=== PATIENT | female | born 1985 | race Caucasian/White ===

== ENCOUNTER 2024-02-12 14:48 | Inpatient (IN) | payer OTHER, SELFPAY ==
[2024-02-12 14:53] VITALS: BP 138/84; PULSE 63; O2SAT 99
--- NOTE | 2024-02-12 15:01 | MHC.CARE ---
Pt seen by N crisis in the community. N reported Pt presented internally preoccupied, thought blocking, and not speaking. Reportedly off medications. N to send assessment.
[2024-02-12 15:13] VITALS: BP 121/76; PULSE 60; RESP 12; TEMP 36.7; O2SAT 98; BMI 39.1
[2024-02-12 15:34] LABS: MANUAL DIFF FLAG NO
[2024-02-12 15:37] LABS: Appearance Urine Clear; Color Urine Yellow; Glucose Urine UA Negative (Negative); Leukocyte Esterase Urine Small (1+) (Negative); Nitrite Urine Negative (Negative); PH 5.5 (5.0-9.0); UMIC TRIGGER UA YES; Urine Blood Negative (Negative); Urine Ketones Trace mg/dL (Negative); Urine Protein Negative (Neg-Trace)
[2024-02-12 15:38] LABS: Basophils Percent Auto 0.1 % (0-2); Eosinophils Absolute Auto 0.4 X10*3/uL (0.0-0.4); Hematocrit 41.7 % (37.0-47.0); Imm Gran Abs Auto 0.03 X10*3/uL (0.00-0.03); Imm Gran Pct Auto 0.3 % (0.0-0.4); Lymphocytes Percent Auto 22.1 % (20-40); Mean Corpuscular HGB Conc 33.6 g/dl (31.0-35.0); Mean Corpuscular Hemoglobin 28.7 pg (27.0-33.0); Mean Corpuscular Volume 85.6 fL (80.0-98.0); Mean Platelet Volume 8.9 fL (9.4-12.3); Monocytes Absolute Auto 0.8 X10*3/uL (0.1-1.2); Monocytes Percent Auto 8.1 % (2-11); Neutrophils Percent Auto 65.4 % (45-73); Platelet Count 409 X10*3/uL (160-400); Red Blood Count 4.87 X10*6/uL (4.20-5.50); Red Cell Distribution Width 13.5 % (11.0-16.0); White Blood Count 9.2 X10*3/uL (4.8-10.8)
--- NOTE | 2024-02-12 15:38 | PC.NURSE ---
Pt admitted to pod. pt changed over for safety, belongings secured. urine and blood tests sent. pt is very flat, very slow to answer questions.
[2024-02-12 15:39] LABS: UPreg QC Valid YES; Urine Pregnancy NEGATIVE (NEGATIVE)
[2024-02-12 15:51] LABS: Alanine Aminotransferase 30 U/L (0-31); Albumin Level 4.2 g/dL (3.5-5.0); Alkaline Phosphatase 95 U/L (39-117); Anion Gap 12 (12-20); Aspartate Amino Transferase 29 U/L (5-31); Bilirubin Total 0.5 mg/dL (0.0-1.0); Blood Urea Nitrogen 10 mg/dL (9-16); Calcium 9.5 mg/dL (8.4-10.2); Carbon Dioxide 24 mmol/L (22-29); Chloride 110 mmol/L (96-108); Creatinine Clr Calc Pharmacy 107.7; Estimated Glomerular Filt Rate > 60; Ethanol < 10 mg/dL; Glucose Random 84 mg/dL (60-115); Potassium 4.2 mmol/L (3.3-5.1); Sodium 142 mmol/L (135-145); Total Protein 7.9 g/dL (6.5-8.0)
[2024-02-12 15:52] LABS: Bacteria Urine Trace (None Seen); Hyaline Casts Urine 0-2 /LPF (0-2); RBC Urine 0-2 /HPF (0-2); WBC Urine 0-5 /HPF (0-5)
[2024-02-12 16:02] LABS: Amphetamine Screen Urine Not Detected (Not Detect); Barbiturates, Urine Not Detected (Not Detect); Benzodiazepines Screen Urine Not Detected (Not Detect); Buprenorphine Scr Not Detected (Not Detect); Cannabinoid Screen Urine Not Detected (Not Detect); Cocaine Screen Urine Not Detected (Not Detect); Fentanyl, urine Not Detected (Not Detect); Methadone Screen, Urine Not Detected (Not Detect); Opiate Screen Urine Not Detected (Not Detect); Oxycodone Screen Urine Not Detected (Not Detect); Phencyclidine Screen Urine Not Detected (Not Detect)
--- NOTE | 2024-02-12 16:55 | ED.GENADULT ---
HPI - General Adult General Chief complaint: Psychiatric Symptoms Stated complaint: SEC 12,SI,AUDITORY HALLUCINATIONS PER EMS Time Seen by Provider: 02/12/24 14:53 Source: patient, RN notes reviewed and old records reviewed Mode of arrival: EMS Limitations: no limitations History of Present Illness ED Provider: Edwin HPI narrative: 38-year-old female with past medical history significant for schizophrenia, major depressive disorder presents for evaluation on a section 12. Patient received in the community for vague suicidal thoughts as well as auditory hallucinations. Patient reports that she has been depressed for most of her life. She reports that she does not want to live anymore but does not have any specific plan She reports that she consider stabbing herself but ?I do not want to traumatize my roommates. ? She also reports hearing voices that she was sick of hearing Denies any somatic complaints Related Data Allergies Allergy/AdvReac Type Severity Reaction Status Date / Time No Known Allergies Allergy Unverified 02/12/24 15:14 [No Known Allergies*] Review of Systems Constitutional: Constitutional: Denies body ache(s), Denies chills and Denies fever(s) Eyes: Eyes: Denies blurry vision ENT: Denies vertigo and Denies dizziness Cardiovascular: Cardiovascular: Denies chest pain and Denies dyspnea Respiratory: Respiratory: Denies cough and Denies dyspnea Gastrointestinal: Gastrointestinal: Denies abdominal pain, Denies nausea and Denies vomiting Musculoskeletal: Musculoskeletal: Denies back pain Integumentary/Breasts: Skin/Breast: Denies rash Neurologic: Denies vertigo and Denies dizziness Psychiatric: Psychiatric: Reports anxiety, Reports depression, Reports auditory hallucinations, Reports visual hallucinations, Denies homicidal ideation and Reports suicidal ideation [facility] Social History Social History (System 12/19/22 @ 15:07 by Viniat Hayes) Unable to assess alcohol history related to: Unknown Smoked in Last 30 Days: No Use of substances other than those prescribed or required for medical reasons: Unknown Advance Directives: No Advance Directives Information Provided: Yes Physical Exam ED Vital Signs: Vital Signs - 24 hr 02/12/24 15:13 Temperature 98.0 F Pulse Rate 60 Respiratory Rate 12 Blood Pressure 121/76 Pulse Oximetry 98 Oxygen Delivery Method Room Air BMI result Body Mass Index 39.1 Const General: healthy appearing, comfortable, no acute distress, alert and awake Nutritional Appearance: well nourished Orientation/consciousness: patient oriented x3 HENMT Head: Yes normocephalic and Yes atraumatic Eyes Eyelids: Yes eyelids normal Conjunctivae: conjunctivae normal Sclerae: sclerae normal Corneas: corneas normal Pupils: Equal, round and reactive pupils present EOM: EOMs intact bilaterally Neck Neck: Yes full ROM Resp Effort & Inspection: normal respiratory effort, able to speak in complete sentences and not labored GI Inspection: No distended Palpation (GI): Soft to palpation, not firm, nontender, no guarding and not rigid Skin General skin exam: elasticity normal Neuro General: patient oriented x3 Cranial nerves: Yes Equal, round and reactive pupils present and Yes Bilaterally intact EOM present Cognition (Neuro): normal cognition Extrem Other: Moving all extremities well without any obvious deformities Psych Other: The patient is quite withdrawn and initially refusing to answer questions, just starting blankly. She would eventually open up and started answering questions at length Appearance: grossly normal Speech and movement: Normal speech and movement present Affect: Sad affect present Attitude: Guarded attititude/behavior present Thought content: Suicidality present Course Reevaluation(s) Reevaluation #1: Patient is medically cleared for psychiatric admission Time: 19:07 Medical Decision Making Medical Decision Making MDM Narrative: 38-year-old female presents for evaluation of auditory hallucinations and depression with suicidal ideation. Plan for medical clearance. She was already a section 12 for inpatient psychiatric care. Differential Diagnosis Differential Diagnoses: The differential diagnosis associated with the presentation includes Schizophrenia Psychosis Depression Suicidal ideation Auditory hallucinations Lab Data [facility] Lab Attestation statement: I reviewed the patient's lab results. No leukocytosis or anemia. Platelet count just above normal. Electrolytes without concerning abnormalities warranting intervention 02/12/24 15:30 02/12/24 15:30 Labs: Lab Results 02/12/24 02/12/24 Range/Units 15:18 15:30 WBC 9.2 (4.8-10.8) X10*3/uL RBC 4.87 (4.20-5.50) X10*6/uL Hgb 14.0 (12.0-16.0) g/dl Hct 41.7 (37.0-47.0) % MCV 85.6 (80.0-98.0) fL MCH 28.7 (27.0-33.0) pg MCHC 33.6 (31.0-35.0) g/dl RDW 13.5 (11.0-16.0) % Plt Count 409 H (160-400) X10*3/uL MPV 8.9 L (9.4-12.3) fL Immature Gran % (Auto) 0.3 (0.0-0.4) % Neut % (Auto) 65.4 (45-73) % Lymph % (Auto) 22.1 (20-40) % [place] % (Auto) 8.1 (2-11) % Eos % (Auto) 4.0 (0-4) % Baso % (Auto) 0.1 (0-2) % Lymph # (Auto) 2.0 (1.2-4.9) X10*3/uL [place] # (Auto) 0.8 (0.1-1.2) X10*3/uL Eos # (Auto) 0.4 (0.0-0.4) X10*3/uL Baso # (Auto) 0.0 (0.0-0.2) X10*3/uL Abs Immat Gran (auto) 0.03 (0.00-0.03) X10*3/uL Absolute Neuts (auto) 6.0 (2.0-8.3) x10*3/uL Absolute Nucleated RBC 0.000 (0.0-0.012) X10*3/uL Nucleated RBC % (auto) 0.0 (0.0-0.2) /100WBC Sodium 142 (135-145) mmol/L Potassium 4.2 (3.3-5.1) mmol/L Chloride 110 H (96-108) mmol/L Carbon Dioxide 24 (22-29) mmol/L Anion Gap 12 (12-20) BUN 10 (9-16) mg/dL Creatinine 0.77 (0.5-1.4) mg/dL Estim Creat Clear Calc 107.7 Estimated GFR > 60 Random Glucose 84 (60-115) mg/dL Calcium 9.5 (8.4-10.2) mg/dL Total Bilirubin 0.5 (0.0-1.0) mg/dL AST 29 (5-31) U/L ALT 30 (0-31) U/L Alkaline Phosphatase 95 (39-117) U/L Total Protein 7.9 (6.5-8.0) g/dL Albumin 4.2 (3.5-5.0) g/dL Urine Color Yellow Urine Appearance Clear Urine pH 5.5 (5.0-9.0) Ur Specific [place] 1.020 (1.005-1.025) Urine Protein Negative (Neg-Trace) mg/dL Urine Glucose (UA) Negative (Negative) mg/dL Urine Ketones Trace (Negative) mg/dL Urine Blood Negative (Negative) Urine Nitrite Negative (Negative) Ur Leukocyte Esterase Small (1+) H (Negative) Urine RBC 0-2 (0-2) /HPF Urine WBC 0-5 (0-5) /HPF Ur Squamous Epith Cells 6-10 (0-2) /HPF Urine Bacteria Trace (None Seen) Hyaline Casts 0-2 (0-2) /LPF Urine Test NEGATIVE (NEGATIVE) Urine Opiates Screen Not Detected (Not Detect) Ur Buprenorphine Scrn Not Detected (Not Detect) ng/mL Ur Oxycodone Screen Not Detected (Not Detect) ng/mL Urine Methadone Screen Not Detected (Not Detect) ng/mL Urine Fentanyl Screen Not Detected (Not Detect) Ur Barbiturates Screen Not Detected (Not Detect) Ur Phencyclidine Scrn Not Detected (Not Detect) Ur Amphetamines Screen Not Detected (Not Detect) U Benzodiazepines Scrn Not Detected (Not Detect) Urine Cocaine Screen Not Detected (Not Detect) U Marijuana (THC) Screen Not Detected (Not Detect) Ethyl Alcohol < 10 mg/dL Discharge Plan Discharge Clinical Impression: Suicidal ideation, Auditory hallucinations Patient Disposition: Still a Patient Interventions: [place]-Suicide Risk Severity Scale Last Done: 02/12/24 15:21 Print Language: Ivorian
--- NOTE | 2024-02-13 | ECG_ITS ---
Test Reason : baseline qt Blood Pressure : / mmHG Vent. Rate : 072 BPM Atrial Rate : 072 BPM P-R Int : 118 ms QRS Dur : 080 ms QT Int : 396 ms P-R-T Axes : -05 131 143 degrees QTc Int : 433 ms Normal sinus rhythm Left posterior fascicular block Inferior infarct , age undetermined Abnormal ECG When compared with ECG of 25-FEB-2017 10:56, Left posterior fascicular block is now Present Nonspecific T wave abnormality now evident in Inferior leads Nonspecific T wave abnormality now evident in Lateral leads Referred By: Anni Ye Electronically Signed By:KAYLA DELGADO MD
[2024-02-13 03:17] VITALS: BP 113/62; PULSE 65; RESP 18; TEMP 36.9; O2SAT 98
[2024-02-13] MEDS: LORazepam 1 MG TABLET 2 MG PO (03:20)
--- NOTE | 2024-02-13 06:27 | PC.NURSE ---
Patient slept intermittently, no distress observed/reported except reported chest pain after waking up from sleep, Ativan 2 mg PO administered with + effect, VSS, disposition per care team is section-12 inpatient bed search, med rec reviewed off her medication for months, will continue to monitor
[2024-02-13 12:46] VITALS: BP 117/71; PULSE 84; RESP 16; TEMP 36.7; O2SAT 98
[2024-02-13 13:35] VITALS: BP 138/84; PULSE 74; RESP 16; TEMP 36.8; O2SAT 99
[2024-02-13] MEDS: Acetaminophen 325 MG TABLET 650 MG PO (14:16)
[2024-02-13 16:29] VITALS: BMI 39.6
--- NOTE | 2024-02-13 16:56 | PC.ADMIT ---
Anabel is a 38 year old woman who arrived from [facility] at 1335, she is a CV and on 5 in checks due to safety concerns. On arrival she reports she was hitting her head on the wall and trying to suffocate myself with a blanket. while in the ED. (this information was not passed along during [id number]). She continues to endorse CAH/VhH of a person telling me to hurt myself . Pt reports she experienced AH/VH since childhood but no one did anything Pt reports she has major depressive disorder and has not taken her medication in months because they make me drowsy . She goes on to state that several years ago she failed to leave her room for almost 3 years. She reports living with her sister at that time and the sister was upset because she wouldn't babysit and kicked her out. She has been staying on a friends sofa since May which she finds triggering. it's loud and I don;t have my own space. I hate my life and who I am. I've felt this way forever . Pt reports feeling paranoid, experiencing CAH to self harm and Vh of a person but I don't know who . Pt states her friend and son have told her they witnessed the pt talking to herself and the rankin. It embarrassing and I try to hold it in but I can't anymore . Pt reports poor sleep for months and states her appetite comes and goes . She remains on 5's for safety.
[2024-02-13 20:00] VITALS: BP 120/58; PULSE 95; RESP 16; TEMP 36.4; O2SAT 98
[2024-02-13] MEDS: hydrOXYzine HCL 25 MG TABLET PO (20:23)
[2024-02-13] MEDS: OLANZapine ODT 10 MG TAB.RAPDIS TRANSLINGU (20:23)
[2024-02-13] MEDS: diphenhydrAMINE HCL 25 MG CAPSULE 50 MG PO (20:23)
--- NOTE | 2024-02-14 04:34 | PC.NURSE ---
AT APPROXIMATELY 2019, [facility] [place]AME TO GET RN FOR ASSISTANCE WITH PT. THE PT APPEARED PREOCCUPIED, STARING BLANKLY AT THE WALL THEN BACKING AWAY AND SHAKING HER HEAD NO . PT WAS DIFFICULT TO ENGAGE SHE WAS FREQUENTLY DISSOCIATING. PT WAS RESPONDING TO INTERNAL STIMULI STATING OVER AND OVER AGAIN I HAVE TO KILL MYSELF, I HAVE TO KILL MYSELF . PT BEGAN BANGING HER HEAD ON THE WALL. PT WENT INTO THE CORNER OF HER ROOM AND ATTEMPTED TO TIE HER PILLOW CASE AROUND HER NECK. PT BEGAN CRYING ON HER BED STATING IM A NICE PERSON AND HELP EVERYONE, WHY CANT I BE NORMAL . PT WAS DICUSSING HER CURRENT LIFE STRESSORS AND HOW DIFFICULT IT IS TO HEAR VOICES. PT NEEDED FREQUENT REDIRECTION TO THE CONVERSATION SHE WOULD BEGIN RESPONDING TO INTERNAL STIMULI. PT DESCRIBED HER FRIEND FELIPA THAT SHE FREQUENTLY SEES AND WAS SPEAKING TO FELIPA IN HER ROOM. PT REPORTS CONSTANT SI. PT STATED I JUST WANT TO . I WANT TO FALL ASLEEP AND NOT WAKE UP OR JUST KILL MYSELF AT THIS POINT. I JUST NEED TO . WAS MADE AWARE. PT TOOK ORAL PRN MEDICATIONS AND WAS PLACED ON 1:1 OBSERVATION FOR SAFETY CONCERNS.
[2024-02-14 08:00] VITALS: BP 136/80; PULSE 79; RESP 16; TEMP 36.8; O2SAT 98
--- NOTE | 2024-02-14 10:04 | HO.PSYADMNOT ---
[facility] Date of Service: 02/14/24 Chief Complaint: psychosis SI Sources of Information: patient interviewed, chart reviewed and crisis/core team assessment reviewed HPI Subjective Notes: Section 12B Narrative: The patient is a 38-year-old descent female, Maori speaking, mother of an 80-year-old son, living with a friend, with limited social support, referred from the emergency room for psychotic symptoms. According to the emergency room the patient was having auditory hallucinations, self dialogue in, exacerbation of depression symptoms and suicidal ideation. She was assessed by crisis and transfer to [facility] for continuation of treatment. Last night, she was very dysphoric and apparently she tried to choke herself with a pillowcase. She required Zydis 10 mg sublingual wants and she was placed on one-to-one. Today in the morning, I assess her and she was over-sedated. Later on she was able to be more alert and awake and she reported that she can not remember that she tried to choke herself. She was a very poor historian but apparently she reported that she had been hearing voices since she was 16 she has several admissions into the hospital that least 3 or 4 last 1 a few years ago for exacerbation of depression with depressed mood, anhedonia, lack of energy, feelings of hopelessness and suicidal thoughts with psychotic symptoms. The patient stated that she had been hearing voices nearly all her life and when she gets more depressed the voices got more intense. She usually does not last too other people and when she feels overwhelmed she self harms. The patient reported that she feels overwhelmed and over-sedated and she was more alert and oriented today. She was able to contract for safety with but we are going to keep her on one-to-one until tomorrow. We will try to gather more collateral information Past Psychiatric History: The patient reported that her 1st psychiatric contact was at the age of 16 for psychosis and depression later on, she was admitted in her early 20s at [facility] and she had an admission a couple of years ago. The patient reported a long history of psychosis with dysphoria. Medical Evaluation Reviewed: Yes [facility] Narrative: The patient denies medical problems Family History: Denies Social History: The patient is a mother of an 18-year-old son who has a good contact with her. She lives with a roommate Substance History: Denies Trauma History: Refuses to elaborate, this moment the patient is over-sedated Diagnostics Vital Signs (24Hr): Vital Signs - 24 hr 02/13/24 12:46 02/13/24 13:35 02/13/24 20:00 Temperature 98.0 F 98.2 F 97.6 F Pulse Rate 84 74 95 Respiratory Rate 16 16 16 Blood Pressure 117/71 138/84 120/58 L Pulse Oximetry 98 99 98 Oxygen Delivery Method Room Air Room Air Room Air 02/14/24 08:00 Temperature 98.3 F Pulse Rate 79 Respiratory Rate 16 Blood Pressure 136/80 Pulse Oximetry 98 Oxygen Delivery Method Room Air BMI result Body Mass Index 39.6 Labs 02/12/24 15:30 02/12/24 15:30 Labs: Laboratory Results - last 48 hr 02/12/24 02/12/24 15:18 15:30 WBC 9.2 RBC 4.87 Hgb 14.0 Hct 41.7 MCV 85.6 MCH 28.7 MCHC 33.6 RDW 13.5 Plt Count 409 H MPV 8.9 L Immature Gran % (Auto) 0.3 Neut % (Auto) 65.4 Lymph % (Auto) 22.1 [place] % (Auto) 8.1 Eos % (Auto) 4.0 Baso % (Auto) 0.1 Lymph # (Auto) 2.0 [place] # (Auto) 0.8 Eos # (Auto) 0.4 Baso # (Auto) 0.0 Abs Immat Gran (auto) 0.03 Absolute Neuts (auto) 6.0 Absolute Nucleated RBC 0.000 Nucleated RBC % (auto) 0.0 Sodium 142 Potassium 4.2 Chloride 110 H Carbon Dioxide 24 Anion Gap 12 BUN 10 Creatinine 0.77 Estim Creat Clear Calc 107.7 Estimated GFR > 60 Random Glucose 84 Calcium 9.5 Total Bilirubin 0.5 AST 29 ALT 30 Alkaline Phosphatase 95 Total Protein 7.9 Albumin 4.2 Urine Color Yellow Urine Appearance Clear Urine pH 5.5 Ur Specific [place] 1.020 Urine Protein Negative Urine Glucose (UA) Negative Urine Ketones Trace Urine Blood Negative Urine Nitrite Negative Ur Leukocyte Esterase Small (1+) H Urine RBC 0-2 Urine WBC 0-5 Ur Squamous Epith Cells 6-10 Urine Bacteria Trace Hyaline Casts 0-2 Urine Test NEGATIVE Urine Opiates Screen Not Detected Ur Buprenorphine Scrn Not Detected Ur Oxycodone Screen Not Detected Urine Methadone Screen Not Detected Urine Fentanyl Screen Not Detected Ur Barbiturates Screen Not Detected Ur Phencyclidine Scrn Not Detected Ur Amphetamines Screen Not Detected U Benzodiazepines Scrn Not Detected Urine Cocaine Screen Not Detected U Marijuana (THC) Screen Not Detected Ethyl Alcohol < 10 Meds/Allergies Meds Home Medications ?Medication ?Instructions ?Recorded ?Confirmed ?Type bupropion HCl 300 mg 24 hr tablet, 300 mg PO QAM 02/13/24 02/13/24 History extended release hydroxyzine HCl 50 mg tablet 50 mg PO TID 02/13/24 02/13/24 History quetiapine 50 mg tablet (Seroquel) 50 mg PO BEDTIME 02/13/24 02/13/24 History Allergies Allergies Allergy/AdvReac Type Severity Reaction Status Date / Time No Known Allergies Allergy Unverified 02/12/24 15:14 [No Known Allergies*] Assessment & Plan Assessment & Plan (1) Psychosis: Status: Acute Code(s): F29 - Unspecified psychosis not due to a substance or known physiological condition (2) Major depressive disorder: Status: Acute Code(s): F32.9 - Major depressive disorder, single episode, unspecified Plan The patient is an adult descent female with a past history of psychosis and depression since she was a teenager with a past history of self-harming behavior with prior admissions into the hospital for similar presentations. The patient reported that she can not remember the current treatment and she was over-sedated since she required Zydis 10 mg last night due to self-harming behavior. Plan 1. Gather collateral information. 2. We will keep the patient on one-to-one observation since she tried to hurt herself last night. 3. The patient complained of depressive symptoms so she agreed to start Prozac 10 mg p.o. daily today. 4. The patient reported over-sedation with Zyprexa 10 mg at night but she admitted a chronic history of psychosis that she does not pay attention. We will start a low doses of Zyprexa 2.5 p.o. q.h.s.. 5. Reassessment with results. Patient educated on: diagnosis and therapeutic strategies Informed Consent: further education needed Reason for continued inpatient stay Substantial Risk for: harm to self, inability to function, rapid decompensation and med/psych decompensation Statement Statement: I have reviewed the history and physical and performed a pertinent examination on my patient. No changes have occurred unless specified. If the History and Physical was not performed prior to admission, the Hospitalist's service will be consulted for completing the admission physical. Time Spent With Patient Time: Total time managing care of this patient today _45___ minutes.
[2024-02-14] MEDS: FLUoxetine HCl Oral Solution 20 MG/5 ML SOLUTION 10 MG PO (10:57)
[2024-02-14] MEDS: OLANZapine 5 MG TABLET PO (10:59)
[2024-02-14] MEDS: diphenhydrAMINE HCL 25 MG CAPSULE 50 MG PO (11:59)
[2024-02-14] MEDS: OLANZapine ODT 10 MG TAB.RAPDIS TRANSLINGU (11:59)
[2024-02-14] MEDS: LORazepam 1 MG TABLET 2 MG PO (11:59)
--- NOTE | 2024-02-14 18:36 | PC.NURSE ---
Pt. A & O X 4. Anxious, distressed mood and affect. Initially thought blocking but then engaging about her hopeless feelings and feelings of shame related to her being not accepted by family due to her sx. of mental illness. Reports she masks her sx. as long as she is able, but then they overcome her. Admits to stopping meds, I don't like to take them. They make me sleepy. Reports she has command AH which tell her to kill herself and she wishes to go to sleep and not wake up. Will not contract for safety and continues on 1:1. Started on Prozac and was also given PRN olanzapine in AM, but then removed pillowcase from pillow and attempted to put it around her neck. She was intercepted by 1:1 who called for help. All bed linens and clothing removed and pt. assisted into safety smock. notified and ordered 1 X benadryl, lorazepam, and Zydis, which pt. accepted. While waiting for medications to take effect she continued to appear tormented by internal stimuli, jumping out of bed, ripping off safety smock, and holding her neck and crying, They're choking me! Pt. positively responded to intervention by this RN and was assisted into bed and covered, and eventually fell asleep. Pt. verbally contracted for safety upon awakening. Agreed to and signed behavior plan. Given hospital johnnies and blankets.
[2024-02-14] MEDS: hydrOXYzine HCL 25 MG TABLET PO (21:06)
[2024-02-15] MEDS: hydrOXYzine HCL 25 MG TABLET PO ×3 (05:40→20:26)
[2024-02-15] MEDS: FLUoxetine HCl Oral Solution 20 MG/5 ML SOLUTION 10 MG PO (09:11)
--- NOTE | 2024-02-15 11:39 | HO.PSYCHPN ---
Subjective Subjective Date of Service: 02/15/24 Reason For Visit: psychosis SI Subjective Notes: Section 12B Interim History: The nursing staff reported the patient remains responding to internal stimuli with auditory hallucinations, unable to contract for safety. On interview the patient reports that she is actively suicidal and she feels very aggravated. She is on one-to-one for safety and suicidal ideation. Mental Status Exam Mental Status Exam Patient Appearance: Appropriate Patient Orientation: Person and Situation Patient Behavior: Guarded Mood Description: Blunted Affect Description: Blunted Ability to Follow Directions: Fair Speech Pattern: Impoverished Hallucinations: Auditory Delusions: Paranoid Ideation Thought Process: Distracted and Slowed Thinking Thought Content: positive for [place] and positive for Poverty of Content Judgement: Poor Diagnostics Vital Signs (24Hr): BMI result Body Mass Index 39.6 Labs 02/12/24 15:30 02/12/24 15:30 Medications Medications Current Medications Acetaminophen (Acetaminophen 325 Mg Tablet) 650 mg PO Q6H PRN PRN Reason: Headache/Pain Mild Scale (1-3) Last Admin: 02/13/24 14:16 Dose: 650 mg Al Hydroxide/Mg Hydroxide (Magnesium Hydrox/Alum Hydrox 30 Ml Oral.Susp) 30 ml PO Q6H PRN PRN Reason: Heartburn/Nausea Fluoxetine HCl (Fluoxetine Hcl Oral Solution 20 Mg/5 Ml Solution) 10 mg PO DAILY [facility] Last Admin: 02/15/24 09:11 Dose: 10 mg Hydroxyzine HCl (Hydroxyzine Hcl 25 Mg Tablet) 25 mg PO Q6H PRN PRN Reason: Anxiety Last Admin: 02/15/24 05:40 Dose: 25 mg Magnesium Hydroxide (Milk Of Magnesia 30 Ml Oral.Susp) 30 ml PO DAILY PRN PRN Reason: Constipation Nicotine (Nicotine 21 Mg Patch.Td24) 21 mg TRANSDERMA DAILY PRN PRN Reason: nicotine cravings Nicotine Polacrilex (Nicotine Polacrilex 2 Mg Gum) 4 mg BUCCAL Q2H PRN PRN Reason: Nicotine Cravings Olanzapine (Olanzapine 5 Mg Tablet) 5 mg PO Q4H PRN PRN Reason: psychosis,agitation Last Admin: 02/14/24 10:59 Dose: 5 mg Olanzapine (Olanzapine 2.5 Mg Tablet) 2.5 mg PO BEDTIME SAMANTHA Last Admin: 02/15/24 01:45 Dose: Not Given Trazodone HCl (Trazodone Hcl 50 Mg Tablet) 50 mg PO BEDTIME MRX1 PRN PRN Reason: Insomnia Allergies Allergies Allergy/AdvReac Type Severity Reaction Status Date / Time No Known Allergies Allergy Unverified 02/12/24 15:14 [No Known Allergies*] Assessment & Plan Assessment & Plan (1) Psychosis: Status: Acute Code(s): F29 - Unspecified psychosis not due to a substance or known physiological condition (2) Major depressive disorder: Status: Acute Code(s): F32.9 - Major depressive disorder, single episode, unspecified Plan The patient is an adult descent female with a past history of psychosis and depression since she was a teenager with a past history of self-harming behavior with prior admissions into the hospital for similar presentations. The patient reported that she can not remember the current treatment and she was over-sedated since she required Zydis 10 mg last night due to self-harming behavior. Plan 1. Gather collateral information. 2. We will keep the patient on one-to-one observation since she tried to hurt herself last night. 3. The patient complained of depressive symptoms so she agreed to start Prozac 10 mg p.o. daily today. 4. The patient reported over-sedation with Zyprexa 10 mg at night but she admitted a chronic history of psychosis that she does not pay attention. We will start a low doses of Zyprexa 2.5 p.o. q.h.s.. 5. Reassessment with results. 6. At this moment the patient is actively suicidal so will need to keep her on one-to-one for safety. Reason for continued inpatient stay Substantial Risk for: inability to function, rapid decompensation and med/psych decompensation Time Spent With Patient Time: Total time managing care of this patient today ___20_ minutes.
[2024-02-15] MEDS: OLANZapine 5 MG TABLET PO (12:20)
--- NOTE | 2024-02-15 12:22 | PC.NURSE ---
Addendum entered by Ivonne Newman RN 02/15/24 12:44: addendum: Pt continues to make statements that she wants to and doesn't want help. An addition dose of 5mg Zyprexa, plus 2mg PO Ativan & 50mg Benadryl admin per MD order. Anabel took additional meds, after reassurance that she is safe here. Original Note: At approx 12:15 PSA called on nurse for assisance. Anabel was in her room looking around with fear on her face, stating they want me to . She was putting her hands to her throat as if to choke herself. Patient was looking in corner, speaking with someone (who is not there) named Cici . She said you don't see her? she wants to kill me. I reassured her she is safe here. When meds offered, pt states you promise that you're not trying to kill me? Pt accepted reassurance that this is a safe place. She willingly took PO zyprexa 5mg & hydroxyzine 25mg. paged to request further prn med orders.
[2024-02-15] MEDS: OLANZapine ODT 10 MG TAB.RAPDIS 5 MG TRANSLINGU (12:42)
[2024-02-15] MEDS: LORazepam 1 MG TABLET 2 MG PO (12:43)
[2024-02-15] MEDS: diphenhydrAMINE HCL 25 MG CAPSULE 50 MG PO ×2 (12:43→20:26)
[2024-02-15 20:00] VITALS: BP 120/70; PULSE 102; RESP 16; TEMP 36.9; O2SAT 99
[2024-02-15] MEDS: OLANZapine 2.5 MG TABLET PO (20:26)
[2024-02-16] MEDS: OLANZapine 5 MG TABLET PO ×3 (01:06→12:34)
[2024-02-16 08:00] VITALS: BP 108/69; PULSE 84; RESP 18; TEMP 36.9; O2SAT 95
[2024-02-16] MEDS: hydrOXYzine HCL 25 MG TABLET PO (08:56)
[2024-02-16] MEDS: FLUoxetine HCl Oral Solution 20 MG/5 ML SOLUTION 10 MG PO (08:56)
--- NOTE | 2024-02-16 09:53 | HO.PSYCHPN ---
Subjective Subjective Date of Service: 02/16/24 Reason For Visit: psychosis SI Interim History: met with patient; discussed with team; reviewed chart; discussed case with patient's close friend who was visiting (with patient's permission) Patient called crisis herself as her depression and psychotic symptoms worsened where she had increasing thoughts of not wanting to be alive anymore. She says I feel so broken... Patient reports long history of untreated AH that people are against her , telling her do not trust... VH of people's faces changing, or objects appearing to shift in position; paranoid thoughts that people might try to hurt her. She says her roommate, Loren's cat will look at her and she thinks there is some uncomfortable intention in it; will see the cats face change; will think the cat is talking to her and will talk back to the cat. Sometimes she says she will space out and forget whom she is talking to or that her dear friend Loren will all the sudden look different and she is not sure who it is for a moment. Patient says this has been going on for years and it flares in intensity. She also reports numerous episodes of severe depression where she has no energy, little interest in things, feel that life is not worth living... During times of stress and depression AVH is worse. Patient tries to do reality testing, tries to tell herself that it is her mind playing tricks on her however is frequently unable to discern what is real and sometimes believes the AVH to be true. Patient denies any history of manic type episodes. Says she has a diagnosis of schizoaffective disorder. She has tried Seroquel but it makes her tired at night. She has tried other medications but is unsure the names. Patient's best friend Loren who has known her for 15 years provided collateral This past May Loren had Anabel move in with her since she was very unhappy living at her sister's. Loren corroborates with most everything patient says. She says patient's symptoms flare up at different times; patient is often able to keep them under the radar of others and able to interact normally with friends or when they go out together however there are periods when her psychotic symptoms are very obvious. Loren says that this past week few weeks that been much worse, the patient is hardly sleeping and mostly just sits there or slowly paces around, talking to herself; corroborates that she will find patient talking to the cat, not recognizing Loren herself... Mental Status Exam Mental Status Exam Narrative: Pt is alert and oriented; behavior is isolative but also cooperative, quiet, slow moving; patient is not in distress; dressed in hospital attire; unkempt; mood is described as depressed and affect congruent, downcast, tearful; eye contact avoidant; Speech is slowed rate and soft; normal prosody; significant psychomotor retardation present (with intermittent agitation); thought process is organized and goal directed, but also distracted with some latency; Thought content is dealing with psychotic symptoms, depression; paranoid delusional thoughts and struggling to discern what is and is not real; positive for SI, currently no plans/intention; no HI. Positive for AVH and patient internally preoccupied. Patients insight and judgment impaired Diagnostics Vital Signs (24Hr): Vital Signs - 24 hr 02/15/24 20:00 Temperature 98.4 F Pulse Rate 102 H Respiratory Rate 16 Blood Pressure 120/70 Pulse Oximetry 99 Oxygen Delivery Method Room Air BMI result Body Mass Index 39.6 Labs 02/12/24 15:30 02/12/24 15:30 Medications Medications Current Medications Acetaminophen (Acetaminophen 325 Mg Tablet) 650 mg PO Q6H PRN PRN Reason: Headache/Pain Mild Scale (1-3) Last Admin: 02/13/24 14:16 Dose: 650 mg Al Hydroxide/Mg Hydroxide (Magnesium Hydrox/Alum Hydrox 30 Ml Oral.Susp) 30 ml PO Q6H PRN PRN Reason: Heartburn/Nausea Diphenhydramine HCl (Diphenhydramine Hcl 25 Mg Capsule) 50 mg PO Q6H PRN PRN Reason: anxiety Last Admin: 02/15/24 20:26 Dose: 50 mg Fluoxetine HCl (Fluoxetine Hcl Oral Solution 20 Mg/5 Ml Solution) 10 mg PO DAILY SAMANTHA Last Admin: 02/16/24 08:56 Dose: 10 mg Hydroxyzine HCl (Hydroxyzine Hcl 25 Mg Tablet) 25 mg PO Q6H PRN PRN Reason: Anxiety Last Admin: 02/16/24 08:56 Dose: 25 mg Magnesium Hydroxide (Milk Of Magnesia 30 Ml Oral.Susp) 30 ml PO DAILY PRN PRN Reason: Constipation Nicotine (Nicotine 21 Mg Patch.Td24) 21 mg TRANSDERMA DAILY PRN PRN Reason: nicotine cravings Nicotine Polacrilex (Nicotine Polacrilex 2 Mg Gum) 4 mg BUCCAL Q2H PRN PRN Reason: Nicotine Cravings Olanzapine (Olanzapine 5 Mg Tablet) 5 mg PO Q4H PRN PRN Reason: psychosis,agitation Last Admin: 02/16/24 08:56 Dose: 5 mg Olanzapine (Olanzapine 2.5 Mg Tablet) 2.5 mg PO BEDTIME SAMANTHA Last Admin: 02/15/24 20:26 Dose: 2.5 mg Trazodone HCl (Trazodone Hcl 50 Mg Tablet) 50 mg PO BEDTIME MRX1 PRN PRN Reason: Insomnia Allergies Allergies Allergy/AdvReac Type Severity Reaction Status Date / Time No Known Allergies Allergy Unverified 02/12/24 15:14 [No Known Allergies*] Assessment & Plan Assessment & Plan (1) Psychosis: Status: Acute Code(s): F29 - Unspecified psychosis not due to a substance or known physiological condition (2) Major depressive disorder: Status: Acute Code(s): F32.9 - Major depressive disorder, single episode, unspecified Plan The patient is an adult descent female with a past history of psychosis and depression since she was a teenager with a past history of self-harming behavior with prior admissions into the hospital for similar presentations. The patient reported that she can not remember the current treatment and she was over-sedated since she required Zydis 10 mg last night due to self-harming behavior. Hospital course: On admission patient was depressed and was psychotic symptoms; tied a sheet around her neck and ended up on a one-to-one 02/15 Patient called crisis herself as her depression and psychotic symptoms worsened where she had increasing thoughts of not wanting to be alive anymore. She says I feel so broken... Patient reports long history of untreated AH that people are against her , telling her do not trust... VH of people's faces changing, or objects appearing to shift in position; paranoid thoughts that people might try to hurt her. She says her roommate, Loren's cat will look at her and she thinks there is some uncomfortable intention in it; will see the cats face change; will think the cat is talking to her and will talk back to the cat. Sometimes she says she will space out and forget whom she is talking to or that her dear friend Loren will all the sudden look different and she is not sure who it is for a moment. Patient says this has been going on for years and it flares in intensity. She also reports numerous episodes of severe depression where she has no energy, little interest in things, feel that life is not worth living... During times of stress and depression AVH is worse. Patient tries to do reality testing, tries to tell herself that it is her mind playing tricks on her however is frequently unable to discern what is real and sometimes believes the AVH to be true. Patient denies any history of manic type episodes. Says she has a diagnosis of schizoaffective disorder. She has tried Seroquel but it makes her tired at night. She has tried other medications but is unsure the names. Patient's best friend Loren who has known her for 15 years provided collateral This past May Loren had Anabel move in with her since she was very unhappy living at her sister's. Loren corroborates with most everything patient says. She says patient's symptoms flare up at different times; patient is often able to keep them under the radar of others and able to interact normally with friends or when they go out together however there are periods when her psychotic symptoms are very obvious. Loren says that this past week few weeks that been much worse, the patient is hardly sleeping and mostly just sits there or slowly paces around, talking to herself; corroborates that she will find patient talking to the cat, not recognizing Loren herself... Formulation/clinical reason: Patient meets criteria for schizoaffective disorder, depressed type. She has AVH which is independent of mood but also has depressive episodes which can get severe. Seroquel and Zyprexa over sedating; discussed medication options and reviewed risks/side effects of Vraylar with which patient agrees to start (as Vraylar is able to treat both psychotic symptoms and depression; usually not sedating). Plan: CV? 1:1 for safety DC Zyprexa; overly sedating and unable to be therapeutic Start Vraylar 1.5 mg daily; will titrate Continue Prozac 10 mg daily for depression Will continue to evaluate Patient educated on: diagnosis, medication risk/benefits and therapeutic strategies Informed Consent: understands and further education needed Reason for continued inpatient stay Substantial Risk for: harm to self, inability to function and rapid decompensation Time Spent With Patient Time: Total time managing care of this patient today ____ minutes.
[2024-02-16] MEDS: Cariprazine HCl 1.5 MG CAPSULE PO (15:41)
[2024-02-16 20:00] VITALS: BP 128/70; PULSE 75; RESP 16; TEMP 36.9; O2SAT 98
[2024-02-17] MEDS: Acetaminophen 325 MG TABLET 650 MG PO ×2 (02:41→22:14)
[2024-02-17] MEDS: diphenhydrAMINE HCL 25 MG CAPSULE 50 MG PO ×4 (02:41→22:14)
[2024-02-17 08:00] VITALS: BP 125/69; RESP 17; TEMP 36.8; O2SAT 95
--- NOTE | 2024-02-17 09:01 | HO.PSYCHPN ---
Subjective Subjective Date of Service: 02/17/24 Reason For Visit: psychosis SI Interim History: met with patient; discussed with team pt reports she is feeling much better. Her mood is better and she's without any SI at all. She denies any AH or VH so far today which is new to her. Pt's friend Loren visited who agrees pt seems much better. Pt agrees to continue with current dose of Vraylar and to continue monitoring it's effectiveness. shared more hx of trauma discussed behaviors on admission, tying sheet around neck and pt does not remember. She says she feels safe. Mental Status Exam Mental Status Exam Narrative: Pt is alert and oriented; behavior is cooperative, more calm, friendly; patient is not in distress; dressed in hospital attire with unkempt hair but adequate hygiene; mood is described as better and affect congruent, brighter, calm; eye contact appropriate; Speech is normal rate, volume and prosody and not pressured; no psychomotor agitation/retardation present; thought process is organized and goal directed; Thought content is on symptoms, tx; otherwise pertinent to relevant topics and without any delusional content, paranoid ideations or grandiosity; denies any SI/HI. so far no AVH, though pt still seems internally preoccupied at times. Patients insight and judgment impaired but improving. Diagnostics Vital Signs (24Hr): Vital Signs - 24 hr 02/16/24 20:00 Temperature 98.4 F Pulse Rate 75 Respiratory Rate 16 Blood Pressure 128/70 Pulse Oximetry 98 Oxygen Delivery Method Room Air BMI result Body Mass Index 39.6 Labs 02/12/24 15:30 02/12/24 15:30 Medications Medications Current Medications Acetaminophen (Acetaminophen 325 Mg Tablet) 650 mg PO Q6H PRN PRN Reason: Headache/Pain Mild Scale (1-3) Last Admin: 02/17/24 02:41 Dose: 650 mg Al Hydroxide/Mg Hydroxide (Magnesium Hydrox/Alum Hydrox 30 Ml Oral.Susp) 30 ml PO Q6H PRN PRN Reason: Heartburn/Nausea Cariprazine (Cariprazine Hcl 3 Mg Capsule) 3 mg PO DAILY SAMANTHA Diphenhydramine HCl (Diphenhydramine Hcl 25 Mg Capsule) 50 mg PO Q6H PRN PRN Reason: anxiety Last Admin: 02/17/24 02:41 Dose: 50 mg Fluoxetine HCl (Fluoxetine Hcl 10 Mg Capsule) 10 mg PO DAILY SAMANTHA Hydroxyzine HCl (Hydroxyzine Hcl 25 Mg Tablet) 25 mg PO Q6H PRN PRN Reason: Anxiety Last Admin: 02/16/24 08:56 Dose: 25 mg Magnesium Hydroxide (Milk Of Magnesia 30 Ml Oral.Susp) 30 ml PO DAILY PRN PRN Reason: Constipation Nicotine (Nicotine 21 Mg Patch.Td24) 21 mg TRANSDERMA DAILY PRN PRN Reason: nicotine cravings Nicotine Polacrilex (Nicotine Polacrilex 2 Mg Gum) 4 mg BUCCAL Q2H PRN PRN Reason: Nicotine Cravings Olanzapine (Olanzapine 5 Mg Tablet) 5 mg PO Q4H PRN PRN Reason: psychosis,agitation Last Admin: 02/16/24 12:34 Dose: 5 mg Trazodone HCl (Trazodone Hcl 50 Mg Tablet) 50 mg PO BEDTIME MRX1 PRN PRN Reason: Insomnia Allergies Allergies Allergy/AdvReac Type Severity Reaction Status Date / Time No Known Allergies Allergy Unverified 02/12/24 15:14 [No Known Allergies*] Assessment & Plan Assessment & Plan (1) Schizoaffective disorder, depressive type: Status: Acute Code(s): F25.1 - Schizoaffective disorder, depressive type (2) PTSD (post-traumatic stress disorder): Status: Acute Code(s): F43.10 - Post-traumatic stress disorder, unspecified Plan The patient is an adult descent female with a past history of psychosis and depression since she was a teenager with a past history of self-harming behavior with prior admissions into the hospital for similar presentations. The patient reported that she can not remember the current treatment and she was over-sedated since she required Zydis 10 mg last night due to self-harming behavior. Hospital course: On admission patient was depressed and was psychotic symptoms; tied a sheet around her neck and ended up on a one-to-one 02/15 Patient called crisis herself as her depression and psychotic symptoms worsened where she had increasing thoughts of not wanting to be alive anymore. She says I feel so broken... Patient reports long history of untreated AH that people are against her , telling her do not trust... VH of people's faces changing, or objects appearing to shift in position; paranoid thoughts that people might try to hurt her. She says her roommate, Loren's cat will look at her and she thinks there is some uncomfortable intention in it; will see the cats face change; will think the cat is talking to her and will talk back to the cat. Sometimes she says she will space out and forget whom she is talking to or that her dear friend Loren will all the sudden look different and she is not sure who it is for a moment. Patient says this has been going on for years and it flares in intensity. She also reports numerous episodes of severe depression where she has no energy, little interest in things, feel that life is not worth living... During times of stress and depression AVH is worse. Patient tries to do reality testing, tries to tell herself that it is her mind playing tricks on her however is frequently unable to discern what is real and sometimes believes the AVH to be true. Patient denies any history of manic type episodes. Says she has a diagnosis of schizoaffective disorder. She has tried Seroquel but it makes her tired at night. She has tried other medications but is unsure the names. Patient's best friend Loren who has known her for 15 years provided collateral This past May Loren had Anabel move in with her since she was very unhappy living at her sister's. Loren corroborates with most everything patient says. She says patient's symptoms flare up at different times; patient is often able to keep them under the radar of others and able to interact normally with friends or when they go out together however there are periods when her psychotic symptoms are very obvious. Loren says that this past week few weeks that been much worse, the patient is hardly sleeping and mostly just sits there or slowly paces around, talking to herself; corroborates that she will find patient talking to the cat, not recognizing Loren herself... 02/16 pt reports she is feeling much better. Her mood is better and she's without any SI at all. She denies any AH or VH so far today which is new to her. Pt's friend Loren visited who agrees pt seems much better. Pt agrees to continue with current dose of Vraylar and to continue monitoring it's effectiveness. -shared about trauma hx -discussed behaviors on admission, tying sheet around neck and pt does not remember. She says she feels safe. will come off 1:1 -impression: first day w/out psychosis and SI. much too early to tell if pt will remain stable and she requires continued monitoring on locked unit to evaluate if medication and dose remain effective. Formulation/clinical reason: Patient meets criteria for schizoaffective disorder, depressed type. She has AVH which is independent of mood but also has depressive episodes which can get severe. Seroquel and Zyprexa over sedating; discussed medication options and reviewed risks/side effects of Vraylar with which patient agrees to start (as Vraylar is able to treat both psychotic symptoms and depression; usually not sedating). Plan: CV q15's DC Zyprexa; overly sedating and unable to be therapeutic continue Vraylar 3mg daily; Continue Prozac 10 mg daily for depression Will continue to evaluate Patient educated on: diagnosis and medication risk/benefits Informed Consent: understands Reason for continued inpatient stay Substantial Risk for: rapid decompensation Time Spent With Patient Time: Total time managing care of this patient today ____ minutes.
[2024-02-17] MEDS: Cariprazine HCl 3 MG CAPSULE PO (10:25)
[2024-02-17] MEDS: FLUoxetine HCl 10 MG CAPSULE PO (10:25)
[2024-02-17] MEDS: hydrOXYzine HCL 25 MG TABLET PO ×2 (10:28→17:07)
[2024-02-17 20:00] VITALS: BP 130/77; PULSE 75; RESP 14; O2SAT 98
[2024-02-17] MEDS: traZODone HCL 50 MG TABLET PO (22:14)
[2024-02-18] MEDS: OLANZapine 5 MG TABLET PO ×3 (01:34→15:41)
[2024-02-18] MEDS: traZODone HCL 50 MG TABLET PO ×2 (01:34→20:23)
[2024-02-18 08:00] VITALS: BP 123/76; PULSE 67; RESP 16; TEMP 36.6; O2SAT 98
[2024-02-18] MEDS: hydrOXYzine HCL 25 MG TABLET PO ×2 (10:09→15:41)
[2024-02-18] MEDS: FLUoxetine HCl 10 MG CAPSULE PO (10:09)
[2024-02-18] MEDS: Cariprazine HCl 3 MG CAPSULE PO (10:10)
--- NOTE | 2024-02-18 19:06 | P.PNPSI_ITS ---
Subjective Subjective Date of Service: 02/18/24 Reason For Visit: psychosis SI Interim History: Met with patient; discussed with team Patient reports she remains doing better. Still no AVH at all. Still some depression however and anxiety but patient continues to report she is feeling much better. Sleeping well enough. Asking about discharge plans and agrees to remain to Friday to continue monitoring medications effectiveness Mental Status Exam Mental Status Exam Narrative: Pt is alert and oriented; behavior is cooperative, calm, friendly; patient is not in distress; dressed in casual attire and adequately groomed; mood is described as better and affect congruent, brighter, calm; eye contact appropriate; Speech is normal rate, volume and prosody and not pressured; no psychomotor agitation/retardation present; thought process is organized and goal directed; Thought content is on symptoms, tx; otherwise pertinent to relevant topics and without any delusional content, paranoid ideations or grandiosity; denies any SI/HI. Remains without AVH. Patients insight and judgment fair Diagnostics Vital Signs (24Hr): Vital Signs - 24 hr 02/17/24 20:00 02/18/24 08:00 Temperature 98 F Pulse Rate 75 67 Respiratory Rate 14 16 Blood Pressure 130/77 123/76 Pulse Oximetry 98 98 Oxygen Delivery Method Room Air Room Air BMI result Body Mass Index 39.6 Labs 02/12/24 15:30 02/12/24 15:30 Medications Medications Current Medications Acetaminophen (Acetaminophen 325 Mg Tablet) 650 mg PO Q6H PRN PRN Reason: Headache/Pain Mild Scale (1-3) Last Admin: 02/17/24 22:14 Dose: 650 mg Al Hydroxide/Mg Hydroxide (Magnesium Hydrox/Alum Hydrox 30 Ml Oral.Susp) 30 ml PO Q6H PRN PRN Reason: Heartburn/Nausea Cariprazine (Cariprazine Hcl 3 Mg Capsule) 3 mg PO DAILY [facility] Last Admin: 02/18/24 10:10 Dose: 3 mg Diphenhydramine HCl (Diphenhydramine Hcl 25 Mg Capsule) 50 mg PO Q6H PRN PRN Reason: anxiety Last Admin: 02/17/24 22:14 Dose: 50 mg Fluoxetine HCl (Fluoxetine Hcl 10 Mg Capsule) 10 mg PO DAILY [facility] Last Admin: 02/18/24 10:09 Dose: 10 mg Hydroxyzine HCl (Hydroxyzine Hcl 25 Mg Tablet) 25 mg PO Q6H PRN PRN Reason: Anxiety Last Admin: 02/18/24 15:41 Dose: 25 mg Magnesium Hydroxide (Milk Of Magnesia 30 Ml Oral.Susp) 30 ml PO DAILY PRN PRN Reason: Constipation Nicotine (Nicotine 21 Mg Patch.Td24) 21 mg TRANSDERMA DAILY PRN PRN Reason: nicotine cravings Nicotine Polacrilex (Nicotine Polacrilex 2 Mg Gum) 4 mg BUCCAL Q2H PRN PRN Reason: Nicotine Cravings Olanzapine (Olanzapine 5 Mg Tablet) 5 mg PO Q4H PRN PRN Reason: psychosis,agitation Last Admin: 02/18/24 15:41 Dose: 5 mg Trazodone HCl (Trazodone Hcl 50 Mg Tablet) 50 mg PO BEDTIME MRX1 PRN PRN Reason: Insomnia Last Admin: 02/18/24 01:34 Dose: 50 mg Allergies Allergies Allergy/AdvReac Type Severity Reaction Status Date / Time No Known Allergies Allergy Unverified 02/12/24 15:14 [No Known Allergies*] Assessment & Plan Assessment & Plan (1) Schizoaffective disorder, depressive type: Status: Acute Code(s): F25.1 - Schizoaffective disorder, depressive type (2) PTSD (post-traumatic stress disorder): Status: Acute Code(s): F43.10 - Post-traumatic stress disorder, unspecified Plan The patient is an adult descent female with a past history of psychosis and depression since she was a teenager with a past history of self-harming behavior with prior admissions into the hospital for similar presentations. The patient reported that she can not remember the current treatment and she was over-sedated since she required Zydis 10 mg last night due to self-harming behavior. Hospital course: On admission patient was depressed and was psychotic symptoms; tied a sheet around her neck and ended up on a one-to-one 02/15 Patient called crisis herself as her depression and psychotic symptoms worsened where she had increasing thoughts of not wanting to be alive anymore. She says I feel so broken... Patient reports long history of untreated AH that people are against her , telling her do not trust... VH of people's faces changing, or objects appearing to shift in position; paranoid thoughts that people might try to hurt her. She says her roommate, Loren's cat will look at her and she thinks there is some uncomfortable intention in it; will see the cats face change; will think the cat is talking to her and will talk back to the cat. Sometimes she says she will space out and forget whom she is talking to or that her dear friend Loren will all the sudden look different and she is not sure who it is for a moment. Patient says this has been going on for years and it flares in intensity. She also reports numerous episodes of severe depression where she has no energy, little interest in things, feel that life is not worth living... During times of stress and depression AVH is worse. Patient tries to do reality testing, tries to tell herself that it is her mind playing tricks on her however is frequently unable to discern what is real and sometimes believes the AVH to be true. Patient denies any history of manic type episodes. Says she has a diagnosis of schizoaffective disorder. She has tried Seroquel but it makes her tired at night. She has tried other medications but is unsure the names. Patient's best friend Loren who has known her for 15 years provided collateral This past May Loren had Anabel move in with her since she was very unhappy living at her sister's. Loren corroborates with most everything patient says. She says patient's symptoms flare up at different times; patient is often able to keep them under the radar of others and able to interact normally with friends or when they go out together however there are periods when her psychotic symptoms are very obvious. Loren says that this past week few weeks that been much worse, the patient is hardly sleeping and mostly just sits there or slowly paces around, talking to herself; corroborates that she will find patient talking to the cat, not recognizing Loren herself... 02/16 pt reports she is feeling much better. Her mood is better and she's without any SI at all. She denies any AH or VH so far today which is new to her. Pt's friend Loren visited who agrees pt seems much better. Pt agrees to continue with current dose of Vraylar and to continue monitoring it's effectiveness. -shared about trauma hx -discussed behaviors on admission, tying sheet around neck and pt does not remember. She says she feels safe. will come off 1:1 -impression: first day w/out psychosis and SI. much too early to tell if pt will remain stable and she requires continued monitoring on locked unit to evaluate if medication and dose remain effective. 02/17 Patient reports she remains doing better. Still no AVH at all. Still some depression however and anxiety but patient continues to report she is feeling much better. Sleeping well enough. Asking about discharge plans and agrees to remain to Friday to continue monitoring medications effectiveness -she reports that a VH is always there at least a little bit but she can usually cope with it and keep it at [place]; it does flare up and is worse when depressed or anxious Formulation/clinical reason: Patient meets criteria for schizoaffective disorder, depressed type. She has AVH which is independent of mood but also has depressive episodes which can get severe. Seroquel and Zyprexa over sedating; discussed medication options and reviewed risks/side effects of Vraylar with which patient agrees to start (as Vraylar is able to treat both psychotic symptoms and depression; usually not sedating). Plan: CV q15's DC scheduled Zyprexa; overly sedating and unable to be therapeutic continue Vraylar 3mg daily; Continue Prozac 10 mg daily for depression Will continue to evaluate Patient educated on: diagnosis, medication risk/benefits and therapeutic strategies Informed Consent: understands Reason for continued inpatient stay Substantial Risk for: stable for discharge and rapid decompensation Time Spent With Patient Time: Total time managing care of this patient today ____ minutes.
[2024-02-18 20:00] VITALS: BP 120/72; PULSE 63; TEMP 36.4; O2SAT 98
[2024-02-19] MEDS: traZODone HCL 50 MG TABLET PO ×2 (02:55→21:04)
[2024-02-19 07:00] VITALS: BMI 39.9
[2024-02-19 08:00] VITALS: BP 154/80; PULSE 90; TEMP 37.2; O2SAT 97
[2024-02-19] MEDS: Cariprazine HCl 3 MG CAPSULE PO (08:26)
[2024-02-19] MEDS: FLUoxetine HCl 10 MG CAPSULE PO (08:26)
[2024-02-19] MEDS: hydrOXYzine HCL 25 MG TABLET PO ×2 (12:25→18:24)
[2024-02-19] MEDS: buPROPion HCl XL 150 MG TAB.ER.24H PO (12:25)
[2024-02-19] MEDS: Cariprazine HCl 1.5 MG CAPSULE PO (17:01)
[2024-02-19 20:00] VITALS: BP 162/96; PULSE 81; TEMP 36.6; O2SAT 98
--- NOTE | 2024-02-19 23:48 | HO.PSYCHPN ---
Subjective Subjective Date of Service: 02/19/24 Reason For Visit: psychosis SI Interim History: Met with patient; discussed with team Patient continues to report no AVH at all. Still some depression which she says is often on though she remains overall feeling better. Patient shares history of trauma and how she is easily startled and that the acuity on the milieu has been challenging. She reports that overall she is depressed about 90% of the time. Discussed medication management and advertising copywriter sees that patient has been frequently getting Zyprexa as a p.r.n. and thus it is not clear if AH resolved due to Vraylar or Zyprexa; however she agrees to continue with Vraylar as it is also used as an antidepressant which is a major struggle for patient. Patient was also on Wellbutrin as an outpatient which he said was helpful; it was not restarted during this admission. She agrees to restart it now. Patient overall feels much better and safe; she is asking for discharge tomorrow. Diagnostics Vital Signs (24Hr): Vital Signs - 24 hr 02/19/24 08:00 02/19/24 20:00 Temperature 98.9 F 97.9 F Pulse Rate 90 81 Blood Pressure 154/80 H 162/96 H Pulse Oximetry 97 98 Oxygen Delivery Method Room Air Room Air BMI result Body Mass Index 39.9 Labs 02/12/24 15:30 02/12/24 15:30 Medications Medications Current Medications Acetaminophen (Acetaminophen 325 Mg Tablet) 650 mg PO Q6H PRN PRN Reason: Headache/Pain Mild Scale (1-3) Last Admin: 02/17/24 22:14 Dose: 650 mg Al Hydroxide/Mg Hydroxide (Magnesium Hydrox/Alum Hydrox 30 Ml Oral.Susp) 30 ml PO Q6H PRN PRN Reason: Heartburn/Nausea Bupropion HCl (Bupropion Hcl Xl 150 Mg Tab.Er.24h) 150 mg PO DAILY [facility] Cariprazine (Cariprazine Hcl 3 Mg Capsule) 3 mg PO DAILY [facility] Last Admin: 02/19/24 08:26 Dose: 3 mg Cariprazine (Cariprazine Hcl 1.5 Mg Capsule) 1.5 mg PO DAILY [facility] Clonidine HCl (Clonidine Hcl 0.1 Mg Tablet) 0.1 mg PO Q4H PRN; Protocol PRN Reason: anxiety Diphenhydramine HCl (Diphenhydramine Hcl 25 Mg Capsule) 50 mg PO Q6H PRN PRN Reason: anxiety Last Admin: 02/17/24 22:14 Dose: 50 mg Fluoxetine HCl (Fluoxetine Hcl 10 Mg Capsule) 10 mg PO DAILY [facility] Last Admin: 02/19/24 08:26 Dose: 10 mg Hydroxyzine HCl (Hydroxyzine Hcl 25 Mg Tablet) 25 mg PO Q6H PRN PRN Reason: Anxiety Last Admin: 02/19/24 18:24 Dose: 25 mg Magnesium Hydroxide (Milk Of Magnesia 30 Ml Oral.Susp) 30 ml PO DAILY PRN PRN Reason: Constipation Nicotine (Nicotine 21 Mg Patch.Td24) 21 mg TRANSDERMA DAILY PRN PRN Reason: nicotine cravings Nicotine Polacrilex (Nicotine Polacrilex 2 Mg Gum) 4 mg BUCCAL Q2H PRN PRN Reason: Nicotine Cravings Trazodone HCl (Trazodone Hcl 50 Mg Tablet) 50 mg PO BEDTIME MRX1 PRN PRN Reason: Insomnia Last Admin: 02/19/24 21:04 Dose: 50 mg Allergies Allergies Allergy/AdvReac Type Severity Reaction Status Date / Time No Known Allergies Allergy Unverified 02/12/24 15:14 [No Known Allergies*] Assessment & Plan Assessment & Plan (1) Schizoaffective disorder, depressive type: Status: Acute Code(s): F25.1 - Schizoaffective disorder, depressive type (2) PTSD (post-traumatic stress disorder): Status: Acute Code(s): F43.10 - Post-traumatic stress disorder, unspecified Plan HPI: The patient is an adult descent female with a past history of psychosis and depression since she was a child with a past history of self-harming behavior with prior admissions into the hospital for similar presentations. The patient reported that she can not remember the current treatment and she was over-sedated since she required Zydis 10 mg last night due to self-harming behavior. Patient called crisis herself as her depression and psychotic symptoms worsened where she had increasing thoughts of not wanting to be alive anymore. She says I feel so broken... Patient reports long history of untreated AH that people are against her , telling her do not trust... VH of people's faces changing, or objects appearing to shift in position; paranoid thoughts that people might try to hurt her. She says her roommate, Loren's cat will look at her and she thinks there is some uncomfortable intention in it; will see the cats face change; will think the cat is talking to her and will talk back to the cat. Sometimes she says she will space out and forget whom she is talking to or that her dear friend Loren will all the sudden look different and she is not sure who it is for a moment. Patient says this has been going on for years and it flares in intensity. She also reports numerous episodes of severe depression where she has no energy, little interest in things, feel that life is not worth living... During times of stress and depression AVH is worse. Patient tries to do reality testing, tries to tell herself that it is her mind playing tricks on her however is frequently unable to discern what is real and sometimes believes the AVH to be true. Patient denies any history of manic type episodes. Says she has a diagnosis of schizoaffective disorder. She has tried Seroquel but it makes her tired at night. She has tried other medications but is unsure the names. Collateral: Patient's best friend Loren who has known her for 15 years provided collateral This past May Loren had Anabel move in with her since she was very unhappy living at her sister's. Loren corroborates with most everything patient says. She says patient's symptoms flare up at different times; patient is often able to keep them under the radar of others and able to interact normally with friends or when they go out together however there are periods when her psychotic symptoms are very obvious. Loren says that this past week few weeks that been much worse, the patient is hardly sleeping and mostly just sits there or slowly paces around, talking to herself; corroborates that she will find patient talking to the cat, not recognizing Loren herself... Hospital course: On admission patient was depressed and was psychotic symptoms; tied a sheet around her neck and ended up on a one-to-one. Patient meets criteria for schizoaffective disorder, depressed type. She has AVH which is independent of mood but also has depressive episodes which can get severe. Seroquel and Zyprexa over sedating; discussed medication options and reviewed risks/side effects of Vraylar with which patient agrees to start (as Vraylar is able to treat both psychotic symptoms and depression; usually not sedating). On Vraylar, patient quickly began to improve. 02/16 pt reports she is feeling much better. Her mood is better and she's without any SI at all. She denies any AH or VH so far today which is new to her. Pt's friend Loren visited who agrees pt seems much better. Pt agrees to continue with current dose of Vraylar and to continue monitoring it's effectiveness. -shared about trauma hx -discussed behaviors on admission, tying sheet around neck and pt does not remember. She says she feels safe. will come off 1:1 -impression: first day w/out psychosis and SI. much too early to tell if pt will remain stable and she requires continued monitoring on locked unit to evaluate if medication and dose remain effective. 02/17 Patient reports she remains doing better. Still no AVH at all. Still some depression however and anxiety but patient continues to report she is feeling much better. Sleeping well enough. Asking about discharge plans and agrees to remain to Friday to continue monitoring medications effectiveness -she reports that a VH is always there at least a little bit but she can usually cope with it and keep it at [place]; it does flare up and is worse when depressed or anxious 02/18 Patient continues to report no AVH at all. Still some depression which she says is often on though she remains overall feeling better. Patient shares history of trauma and how she is easily startled and that the acuity on the milieu has been challenging. She reports that overall she is depressed about 90% of the time. Discussed medication management and advertising copywriter sees that patient has been frequently getting Zyprexa as a p.r.n. and thus it is not clear if AH resolved due to Vraylar or Zyprexa; however she agrees to continue with Vraylar (and increase the dose) as it is also used as an antidepressant which is a major struggle for patient. Patient was also on Wellbutrin as an outpatient which he said was helpful; it was not restarted during this admission. She agrees to restart it now. Patient overall feels much better and safe; she is asking for discharge tomorrow. Patient has significantly improved and has a better understanding of her illness. AVH is fully resolved and mood is better. She already has outpatient providers. Patient is asking for discharge home where she lives with her best friend who is a strong support. Patient has no SI and is optimistic and future oriented. Patient is not in imminent risk for harm to self or others and appropriate to return to the community. Her request for discharge honored. Plan: CV q15's Increase Vraylar to 4.5 mg daily for continued help with depression Restart Wellbutrin XL 150 mg (was on 300 in the past which she said was helpful; will defer to outpatient providers to further manage this medication) Will DC Zyprexa even as a p.r.n. and see if AH comes back Continue Prozac 10 mg daily as patient has a history of trauma and this was part of her outpatient regimen; again outpatient provider can further manage regimen Patient educated on: diagnosis, medication risk/benefits and therapeutic strategies Informed Consent: understands Reason for continued inpatient stay Substantial Risk for: stable for discharge Time Spent With Patient Time: Total time managing care of this patient today ____ minutes.
[2024-02-20] MEDS: traZODone HCL 50 MG TABLET PO (03:34)
[2024-02-20 08:00] VITALS: BP 141/71; PULSE 87; RESP 16; TEMP 37; O2SAT 98
[2024-02-20] MEDS: Cariprazine HCl 3 MG CAPSULE PO (08:57)
[2024-02-20] MEDS: Acetaminophen 325 MG TABLET 650 MG PO (08:57)
[2024-02-20] MEDS: buPROPion HCl XL 150 MG TAB.ER.24H PO (08:57)
[2024-02-20] MEDS: Cariprazine HCl 1.5 MG CAPSULE PO (08:57)
[2024-02-20] MEDS: FLUoxetine HCl 10 MG CAPSULE PO (08:57)
--- NOTE | 2024-02-20 09:18 | P.DS_ITS ---
DS: Providers Provider Date of Service: 02/20/24 Date of admission: 02/13/24 11:26 Date of discharge: 02/20/24 Primary care physician: None Physician Attending physician on admission: Simone Moyer Attending physician on discharge: Simone Moyer DS: Diagnosis Discharge Diagnosis (1) Schizoaffective disorder, depressive type: Status: Acute (2) PTSD (post-traumatic stress disorder): Status: Acute DS: Medications Discharge Medications Home Medications: Home Medications ?Medication ?Instructions ?Recorded ?Confirmed bupropion HCl 300 mg 24 hr tablet, 300 mg PO QAM 02/13/24 02/13/24 extended release hydroxyzine HCl 50 mg tablet 50 mg PO TID 02/13/24 02/13/24 quetiapine 50 mg tablet (Seroquel) 50 mg PO BEDTIME 02/13/24 02/13/24 Mental Status Exam Mental Status Exam Narrative: Pt is alert and oriented; behavior is cooperative, calm, friendly; patient is not in distress; dressed in casual attire and adequately groomed; mood is described as good and affect congruent, brighter, calm; eye contact appropriate; Speech is normal rate, volume and prosody and not pressured; no psychomotor agitation/retardation present; thought process is organized and goal directed; Thought content is on discharge, treatment; otherwise pertinent to relevant topics and without any delusional content, paranoid ideations or grandiosity; denies any SI/HI. Remains without AVH. Patients insight and judgment fair DS: Summary Hospital Course Hospital Course: HPI: The patient is an adult descent female with a past history of psychosis and depression since she was a child with a past history of self-harming behavior with prior admissions into the hospital for similar presentations. The patient reported that she can not remember the current treatment and she was over-sedated since she required Zydis 10 mg last night due to self-harming behavior. Patient called crisis herself as her depression and psychotic symptoms worsened where she had increasing thoughts of not wanting to be alive anymore. She says I feel so broken... Patient reports long history of untreated AH that people are against her , telling her do not trust... VH of people's faces changing, or objects appearing to shift in position; paranoid thoughts that people might try to hurt her. She says her roommate, Loren's cat will look at her and she thinks there is some uncomfortable intention in it; will see the cats face change; will think the cat is talking to her and will talk back to the cat. Sometimes she says she will space out and forget whom she is talking to or that her dear friend Loren will all the sudden look different and she is not sure who it is for a moment. Patient says this has been going on for years and it flares in intensity. She also reports numerous episodes of severe depression where she has no energy, little interest in things, feel that life is not worth living... During times of stress and depression AVH is worse. Patient tries to do reality testing, tries to tell herself that it is her mind playing tricks on her however is frequently unable to discern what is real and sometimes believes the AVH to be true. Patient denies any history of manic type episodes. Says she has a diagnosis of schizoaffective disorder. She has tried Seroquel but it makes her tired at night. She has tried other medications but is unsure the names. Collateral: Patient's best friend Loren who has known her for 15 years provided collateral This past May Loren had Anabel move in with her since she was very unhappy living at her sister's. Loren corroborates with most everything patient says. She says patient's symptoms flare up at different times; patient is often able to keep them under the radar of others and able to interact normally with friends or when they go out together however there are periods when her psychotic symptoms are very obvious. Loren says that this past week few weeks that been much worse, the patient is hardly sleeping and mostly just sits there or slowly paces around, talking to herself; corroborates that she will find patient talking to the cat, not recognizing Loren herself... Hospital course: On admission patient was depressed and was psychotic symptoms; tied a sheet around her neck and ended up on a one-to-one. Patient meets criteria for schizoaffective disorder, depressed type. She has AVH which is independent of mood but also has depressive episodes which can get severe. Seroquel and Zyprexa over sedating; discussed medication options and reviewed risks/side effects of Vraylar with which patient agrees to start (as Vraylar is able to treat both psychotic symptoms and depression; usually not sedating). On Vraylar, patient quickly began to improve. 02/16 pt reports she is feeling much better. Her mood is better and she's without any SI at all. She denies any AH or VH so far today which is new to her. Pt's friend Loren visited who agrees pt seems much better. Pt agrees to continue with current dose of Vraylar and to continue monitoring it's effectiveness. -shared about trauma hx -discussed behaviors on admission, tying sheet around neck and pt does not remember. She says she feels safe. will come off 1:1 -impression: first day w/out psychosis and SI. much too early to tell if pt will remain stable and she requires continued monitoring on locked unit to evaluate if medication and dose remain effective. 02/17 Patient reports she remains doing better. Still no AVH at all. Still some depression however and anxiety but patient continues to report she is feeling much better. Sleeping well enough. Asking about discharge plans and agrees to remain to Friday to continue monitoring medications effectiveness -she reports that a VH is always there at least a little bit but she can usually cope with it and keep it at [place]; it does flare up and is worse when depressed or anxious 02/18 Patient continues to report no AVH at all. Still some depression which she says is often on though she remains overall feeling better. Patient shares history of trauma and how she is easily startled and that the acuity on the milieu has been challenging. She reports that overall she is depressed about 90% of the time. Again food writer reviewed history and patient denies any episodes of manic behavior. Discussed medication management and food writer sees that patient has been frequently getting Zyprexa as a p.r.n. and thus it is not clear if AH resolved due to Vraylar or Zyprexa; however she agrees to continue with Vraylar (and increase the dose) as it is also used as an antidepressant which is a major struggle for patient. Patient was also on Wellbutrin as an outpatient which he said was helpful; it was not restarted during this admission. She agrees to restart it now. Patient overall feels much better and safe; she is asking for discharge tomorrow. Patient has significantly improved and has a better understanding of her illness. AVH is fully resolved and mood is better. She already has outpatient providers. Since patient started on medication, she has remained in good behavioral and impulse control and appropriate with peers and staff. Patient is asking for discharge home where she lives with her best friend who is a strong support. Patient has no SI and is optimistic and future oriented. Patient is not in imminent risk for harm to self or others and appropriate to return to the community. Her request for discharge honored. Medications: started on Vraylar to 4.5 mg daily Restarted Wellbutrin XL 150 mg (past dose 300mg) Restarted on Prozac 10 mg daily Time spent discussing smoking cessation with patient: 3 to 10 minutes Status at Discharge Functional status at discharge: independent ambulation Overall status at discharge: patient is back to baseline Time Spent with Patient Time attestation: Total time managing care of this patient today _40___ minutes. Time spent: Greater than 30 minutes Specific discharge activities: Met with patient; discussed with team; charting; prescription Discharge Plan Discharge Anticipated Discharge Date/Time: 02/20/24 11:30 Patient Disposition: Home, Self-Care Discharge Diagnosis: Schizoaffective disorder, depressed type Referrals: [facility]- Therapy [Other] - 02/23/24 12:00 pm (Appointment is with Wendi High for therapy ) [facility]- Medication Management [Other] - 1 Week (You will have an appointment with Dr. John Garcia, we will call you with the appointment date. If you have not heard in one week please call [facility] central intake ) Physician,None [Primary Care Provider] - 1 Week Discharge Medications: New Vraylar 1.5 mg Capsule 1.5 mg PO DAILY 30 Days Qty: 30 1RF Rx Instructions: Take daily with 3 mg capsule Vraylar 3 mg Capsule 3 mg PO DAILY 30 Days Qty: 30 1RF Rx Instructions: Take daily with 1.5 mg capsule trazodone 50 mg Tablet See Rx Instructions .ROUTE .COMPLEX PRN (Reason: Insomnia) 30 Days Qty: 60 1RF Rx Instructions: take 1 to 2 tabs at bedtime as needed for insomnia fluoxetine 10 mg Capsule 10 mg PO DAILY 30 Days Qty: 30 1RF Changed hydroxyzine HCl 50 mg Tablet 50 mg PO TID PRN (Reason: anxiety/itching) 30 Days Qty: 90 1RF bupropion HCl 150 mg tablet extended release 24 hr 150 mg PO QAM 30 Days Qty: 30 1RF Discontinued quetiapine [Seroquel] 50 mg Tablet 50 mg PO BEDTIME Discharge Orders: Discharge Order (Routine); Ordered 02/20/24 Ordered By: Simone Moyer Diet: Regular diet Activity on Discharge: As tolerated Stand Alone Forms: Patient Portal Discharge page Print Language: Citizen Of [place] Care Plan Goals: Maintain mood and safe behaviors Take medications as prescribed Practice coping skills Continue with outpatient providers and reach out to them as needed Health Concerns: Mood stability and behaviors Plan of Treatment: Follow up with your PCP, psychiatric provider and other outpatient providers regarding above concerns Take medications as prescribed Assessment: Risk assessment at time of discharge:? Patient was interviewed prior to discharge and found to be fully oriented and without any SI or HI. Patient has improved insight and judgment and wants to continue treatment. Patient is not in imminent risk of harm to self or others and has a safety plan that includes presenting to the closest ER or calling 911 if feeling unsafe.? Patient has been observed closely by nursing and unit staff throughout admission; patient has not engaged in any behaviors that suggest dangerousness to self or others and has demonstrated appropriate behaviors and impulse control
== END 2024-02-20 11:30 | disposition home or self-care (01) | DRG 750 ==
LOC: HO.ED 19:08 → HO.PM5 02-13 12:36
PROVIDERS: Physician Assistant; Admitting Provider Clinical Nurse Specialist Psychiatric/Mental Health, Adult; Emergency Provider Student in an Organized Health Care Education/Training Program; Visit Provider Psychiatry & Neurology Psychiatry
DX: F25.1 Schizoaffective disorder, depressive type (principal); R45.851 Suicidal ideations; F43.10 Post-traumatic stress disorder, unspecified; Z79.899 Other long term (current) drug therapy
CPT/HCPCS: 36415; 80053; 80307; 81001; 81025; 85025; 93005; 99285

== ENCOUNTER → 2024-02-13 08:37 | Outpatient (BNV) | payer OTHER, SELFPAY | PROVIDERS: Admitting Provider Clinical Nurse Specialist Psychiatric/Mental Health, Adult; Emergency Provider Student in an Organized Health Care Education/Training Program; Visit Provider Internal Medicine Cardiovascular Disease | DX: R94.31 Abnormal electrocardiogram [ECG] [EKG] (principal) | CPT/HCPCS: 93010 ==

== ENCOUNTER → 2024-02-13 11:26 | Outpatient (BNV) | payer OTHER, SELFPAY | PROVIDERS: Admitting Provider Clinical Nurse Specialist Psychiatric/Mental Health, Adult; Emergency Provider Student in an Organized Health Care Education/Training Program; Visit Provider Psychiatry & Neurology Psychiatry | DX: F29 Unspecified psychosis not due to a substance or known physiological condition (principal); F32.2 Major depressive disorder, single episode, severe without psychotic features; F25.1 Schizoaffective disorder, depressive type; F43.11 Post-traumatic stress disorder, acute | CPT/HCPCS: 90792; 99232; 99239 ==